=== PATIENT | female | born 1970 | race Caucasian/White ===

== ENCOUNTER → 2019-10-27 | Outpatient (CLI) | payer OTHER ==
[2019-10-27 12:58] LABS: BASO # 0.1 x10^3/uL (0.0-0.2); BASO % 1 % (0-3); EOS # 0.9 x10^3/uL (0.0-0.7); EOS % 6 % (0-3); HEMATOCRIT 42.6 % (36.0-47.0); LYMPH # 2.6 x10^3/uL (1.0-4.8); LYMPH % 17 % (24-48); MEAN CORPUSCULAR HEMOGLOBIN 26 pg (25-35); MEAN CORPUSCULAR HGB CONC 33 g/dL (31-37); MEAN CORPUSCULAR VOLUME 80 fL (79-100); MONO # 0.9 x10^3/uL (0.0-1.1); MONO % 6 % (0-9); NEUT # 10.3 x10^3/uL (1.8-7.7); NEUT % 70 % (31-73); PLATELET COUNT 313 x10^3/uL (140-400); RED BLOOD COUNT 5.35 x10^6/uL (3.50-5.40); RED CELL DISTRIBUTION WIDTH 16.1 % (11.5-14.5); WHITE BLOOD COUNT 14.7 x10^3/uL (4.0-11.0)
== END | disposition home or self-care (01) ==
LOC: LAB 12:40
PROVIDERS: ATTEND Internal Medicine Critical Care Medicine
DX: J45.909 Unspecified asthma, uncomplicated (principal)
CPT/HCPCS: 36415; 82784; 85025

== ENCOUNTER → 2019-10-30 | Outpatient (CLI) | payer OTHER ==
--- NOTE | 2019-10-30 23:05 | RAD ---
CHEST PA LATERAL History: Shortness of breath. Productive cough. Wheezing. Comparison: None. Findings: Patchy right medial basilar opacity. No pleural effusion. No pneumothorax. Normal heart size. Impression: 1. Patchy right medial basilar opacity, may represent atelectasis. Recommend follow-up to exclude developing consolidation. Electronically signed by: Pedro Vee DO (10/30/2019 11:03 PM) [facility]
== END | disposition home or self-care (01) ==
LOC: RAD 17:38
PROVIDERS: ATTEND Internal Medicine Critical Care Medicine
DX: R06.02 Shortness of breath (principal); J45.909 Unspecified asthma, uncomplicated; R05 Cough; R06.2 Wheezing
CPT/HCPCS: 71046

== ENCOUNTER → 2019-11-10 | Outpatient (CLI) | payer OTHER ==
[~2019-11-10] MED LIST: ZOLPIDEM 5 MG TABLET. PO ONE
--- NOTE | 2019-11-11 09:53 | SLEEP ---
DATE OF STUDY: 11/10/2019 SLEEP STUDY ATTENDING PHYSICIAN: Kojo Chris MD. The patient is a 49-year-old who weighs 260 pounds with a BMI of 44. The patient's Austerlitz score was 13. The patient underwent sleep study performed at [facility]. During the night study, the patient spent 464 minutes in bed and slept for 426 minutes with a sleep efficiency of 92%. Sleep latency was 17 minutes with a REM latency of 188 minutes. Overall, sleep architecture showed increased stage 1 sleep, normal stage 2 sleep, increased slow wave and slightly reduced REM sleep. During the night study, the patient had 1 obstructive apnea, no mixed or central apneas and 76 hypopneas. The patient's apnea-hypopnea index was 11 per hour with a supine index of 13 per hour and a REM index of 55 per hour. EKG monitoring revealed an average heart rate of 95 beats per minute, no sustained arrhythmias observed. Occasional episodes of sinus tachycardia seen. Nocturnal oximetry study revealed a mean oxygen saturation of 96% with the lowest of 79%. 17% of time oxygen saturation remained between 80% and 89% and it was worse during REM sleep. PLMS were seen at index of 31 per hour and 3 per hour caused EEG arousals. Due to low AHI, the patient did not meet the split night criteria for CPAP initiation. IMPRESSION: 1. Mild sleep apnea-hypopnea syndrome with worsening during REM sleep. Total AHI 11 per hour with a REM AHI of 55 per hour. 2. Nocturnal hypoxia secondary to obstructive sleep apnea. Hypoxia was worse during REM sleep. 3. Moderate periodic limb movements. RECOMMENDATIONS: 1. The patient is clinically symptomatic. I would recommend treating the patient's sleep apnea with CPAP. Alternate treatment option would include oral appliance as recommended by the dentist. 2. Once the patient is optimally treated, then follow up in 4-6 weeks to assess compliance with treatment and to document clinical improvement. 3. Weight loss is strongly advised. 4. Avoid [employer] depressants. 5. Cautioned regarding driving until symptoms of sleep apnea have resolved with above recommendations. HEAVEN SINGLETARY MD DR: ROXIE/umm JOB#: [id number] / [id number] KOJO Pineda
== END | disposition home or self-care (01) ==
LOC: SLPLAB 19:00
PROVIDERS: ATTEND Internal Medicine Critical Care Medicine
DX: G47.33 Obstructive sleep apnea (adult) (pediatric) (principal); G47.34 Idiopathic sleep related nonobstructive alveolar hypoventilation; G47.61 Periodic limb movement disorder
CPT/HCPCS: 95810

== ENCOUNTER 2019-12-13 19:43 | Emergency (ER) | payer OTHER ==
[~2019-12-13] VITALS: Ht 162.6 cm; Wt 118.8 kg
[2019-12-13 21:07] LABS: BASO # 0.1 x10^3/uL (0.0-0.2); BASO % 1 % (0-3); EOS # 0.4 x10^3/uL (0.0-0.7); EOS % 3 % (0-3); HEMATOCRIT 42.1 % (36.0-47.0); HEMOGLOBIN 13.9 g/dL (12.0-15.5); LYMPH # 3.9 x10^3/uL (1.0-4.8); LYMPH % 27 % (24-48); MEAN CORPUSCULAR HEMOGLOBIN 27 pg (25-35); MEAN CORPUSCULAR HGB CONC 33 g/dL (31-37); MEAN CORPUSCULAR VOLUME 83 fL (79-100); MONO # 1.2 x10^3/uL (0.0-1.1); MONO % 9 % (0-9); NEUT # 8.7 x10^3/uL (1.8-7.7); NEUT % 60 % (31-73); PLATELET COUNT 298 x10^3/uL (140-400); RED CELL DISTRIBUTION WIDTH 15.1 % (11.5-14.5); WHITE BLOOD COUNT 14.4 x10^3/uL (4.0-11.0)
[2019-12-13 21:07] LABS: BILIRUBIN,URINE NEGATIVE (NEG); CLARITY,URINE CLEAR; COLOR,URINE YELLOW; NITRITE,URINE NEGATIVE (NEG); PROTEIN,URINE NEGATIVE (NEG-TRACE); UROBILINOGEN,URINE 0.2 mg/dL (0.2 mg/dL)
[2019-12-13 21:12] LABS: BACTERIA,URINE FEW /HPF (0-FEW); RBC,URINE 0 /HPF (0-2); SQUAMOUS EPITHELIAL CELL,UR MANY /LPF; WBC,URINE OCC /HPF (0-4)
[2019-12-13] MEDS ORDERED: cloNIDine HCL 0.1 MG TABLET PO ONE (21:30)
--- NOTE | 2019-12-13 21:30 | RAD ---
CHEST AP ONLY Clinical indications: Shortness of air. COMPARISON: October 30, 2019. Findings: No acute lung infiltrate or pleural effusion or pulmonary edema or lung mass or pneumothorax is seen. The heart size, pulmonary vasculature, mediastinum and both satish are unremarkable. Impression: No acute radiographic abnormality is seen. Electronically signed by: Temo Mattson MD (12/13/2019 9:27 PM) [facility]
[2019-12-13 21:47] LABS: CREATININE 0.9 mg/dL (0.6-1.0); GFR 67.1; POTASSIUM 3.7 mmol/L (3.5-5.1)
[2019-12-13 21:52] LABS: ALBUMIN 3.5 g/dL (3.4-5.0); ALBUMIN/GLOBULIN RATIO 0.9 (1.0-1.7); TOTAL BILIRUBIN 0.2 mg/dL (0.2-1.0); TOTAL PROTEIN 7.3 g/dL (6.4-8.2)
[2019-12-13] MEDS ORDERED: MORPHINE SULFATE 4 MG/ML VIAL. IV ONE (22:00)
[2019-12-13] MEDS ORDERED: ONDANSETRON PF 4 MG/2 ML VIAL. IVP ONE (22:00)
[2019-12-13 22:04] VITALS: BP 149/80
--- NOTE | 2019-12-13 22:50 | PHYS DOC ---
Past Medical History Past Medical History: Anxiety, Arthritis, Asthma, Fibromyalgia, High Cholesterol, Hypertension, Migraines, Sciatica, Other Additional Past Medical Histor: CEREBROCAVENOUS MALFORMATION Past Surgical History: Hysterectomy, Tonsillectomy, Other Additional Past Surgical Histo: SINUS,ADENOIDS Alcohol Use: None Drug Use: None Adult General Chief Complaint Chief Complaint: HYPERTENSION HPI HPI Patient is a 49 year old anxiety, asthma hypertension and fibromyalgia who presents with multiple medical complaints. Patient reports cyst and shortness of breath and wheezing for the past several days. Started on prednisone 60 mg twice daily 3 days ago with some improvement. Denies fever. Reports pain, bilateral shoulder pain 2 weeks reproducible with range of motion and palpation. Reports headache with dizziness last evening with elevated blood pressure prior to work this evening. Denies fever, nausea vomiting sweats. No other acute symptoms or complaints No missed medications. [] Review of Systems Review of Systems ROS as per HPI All other systems were reviewed and found to be within normal limits, except as documented in this note. Current Medications Current Medications Current Medications Medications (Trade) Dose Ordered Sig/Bernard Start Time Stop Time Status Last Admin Dose Admin Clonidine HCl (Catapres) 0.2 mg 1X ONCE 12/13/19 21:30 12/13/19 21:31 DC 12/13/19 21:30 0.2 MG Lorazepam (Ativan Inj) 1 mg PRN Q4HRS PRN 12/13/19 21:30 12/13/19 22:31 DC 12/13/19 21:31 1 MG Morphine Sulfate (Morphine Sulfate) 4 mg 1X ONCE 12/13/19 22:00 12/13/19 22:01 DC 12/13/19 21:31 4 MG Ondansetron HCl (Zofran) 4 mg 1X ONCE 12/13/19 22:00 12/13/19 22:01 DC 12/13/19 21:31 4 MG Allergies Allergies Allergies Coded Allergies Type Severity Reaction Last Updated Verified Iodinated Contrast Media Allergy Severe CAN'T SWALLOW 12/13/19 Yes shellfish derived Allergy Severe 12/13/19 Yes adhesive Allergy Intermediate 12/13/19 Yes codeine Allergy Intermediate 12/13/19 Yes ketorolac Allergy Intermediate 12/13/19 Yes latex Allergy Intermediate 12/13/19 Yes influenza virus vaccine ts 5033-1294 (36 mos,up) Adverse Reaction Intermediate ARM SWELLING, HIVES 12/13/19 Yes Physical Exam Physical Exam Constitutional: Well developed, well nourished, no acute distress, non-toxic appearance. [] HENT: Normocephalic, atraumatic, bilateral external ears normal, oropharynx moist, no oral exudates, nose normal. [] Eyes: PERRLA, EOMI, conjunctiva normal, no discharge. [] Neck: Normal range of motion, no tenderness, supple, no stridor. [] Cardiovascular:Heart rate regular rhythm, no murmur, negative Homans signs [] Lungs & Thorax: Respirations nonlabored, tachypnea, mildly diminished breath s ounds bilaterally, no wheezes.[] Abdomen: Bowel sounds normal, soft, no tenderness. [] Skin: Warm, dry, no erythema, no rash. [] Back: No tenderness, no CVA tenderness. [] Extremities: No tenderness. [] Neurologic: Alert and oriented X 3, normal motor function, normal sensory function, no focal deficits noted. [] Psychologic: Affect anxious, judgement normal, mood normal. [] Current Patient Data Vital Signs Vital Signs Date Time Temp Pulse Resp B/P (MAP) Pulse Ox O2 Delivery O2 Flow Rate FiO2 12/13/19 22:04 98 16 98 12/13/19 21:31 Room Air 12/13/19 21:30 179/78 12/13/19 19:57 98.1 98.1 Lab Values Laboratory Tests Test 12/13/19 20:03 12/13/19 20:18 12/13/19 20:48 Urine Collection Type Unknown Urine Color Yellow Urine Clarity Clear Urine pH 6.0 Urine Specific [place] 1.020 Urine Protein Negative mg/dL (NEG-TRACE) Urine Glucose (UA) Negative mg/dL (NEG) Urine Ketones (Stick) Negative mg/dL (NEG) Urine Blood Negative (NEG) Urine Nitrite Negative (NEG) Urine Bilirubin Negative (NEG) Urine Urobilinogen Dipstick 0.2 mg/dL (0.2 mg/dL) Urine Leukocyte Esterase Negative (NEG) Urine RBC 0 /HPF (0-2) Urine WBC Occ /HPF (0-4) Urine Squamous Epithelial Cells Many /LPF Urine Bacteria Few /HPF (0-FEW) Urine Mucus Slight /LPF Sodium Level 144 mmol/L (136-145) Potassium Level 3.7 mmol/L (3.5-5.1) Chloride Level 106 mmol/L (98-107) Carbon Dioxide Level 28 mmol/L (21-32) Anion Gap 10 (6-14) Blood Urea Nitrogen 17 mg/dL (7-20) Creatinine 0.9 mg/dL (0.6-1.0) Estimated GFR (Cockcroft-Gault) 67.1 BUN/Creatinine Ratio 19 (6-20) Glucose Level 91 mg/dL (70-99) Calcium Level 9.0 mg/dL (8.5-10.1) Total Bilirubin 0.2 mg/dL (0.2-1.0) Aspartate Amino Transferase (AST) 13 U/L (15-37) L Alanine Aminotransferase (ALT) 16 U/L (14-59) Alkaline Phosphatase 107 U/L (46-116) Total Protein 7.3 g/dL (6.4-8.2) Albumin 3.5 g/dL (3.4-5.0) Albumin/Globulin Ratio 0.9 (1.0-1.7) L White Blood Count 14.4 x10^3/uL (4.0-11.0) H Red Blood Count 5.10 x10^6/uL (3.50-5.40) Hemoglobin 13.9 g/dL (12.0-15.5) Hematocrit 42.1 % (36.0-47.0) Mean Corpuscular Volume 83 fL (79-100) Mean Corpuscular Hemoglobin 27 pg (25-35) Mean Corpuscular Hemoglobin Concent 33 g/dL (31-37) Red Cell Distribution Width 15.1 % (11.5-14.5) H Platelet Count 298 x10^3/uL (140-400) Neutrophils (%) (Auto) 60 % (31-73) Lymphocytes (%) (Auto) 27 % (24-48) Monocytes (%) (Auto) 9 % (0-9) Eosinophils (%) (Auto) 3 % (0-3) Basophils (%) (Auto) 1 % (0-3) Neutrophils # (Auto) 8.7 x10^3/uL (1.8-7.7) H Lymphocytes # (Auto) 3.9 x10^3/uL (1.0-4.8) Monocytes # (Auto) 1.2 x10^3/uL (0.0-1.1) H Eosinophils # (Auto) 0.4 x10^3/uL (0.0-0.7) Basophils # (Auto) 0.1 x10^3/uL (0.0-0.2) Troponin I Quantitative < 0.017 ng/mL (0.000-0.055) KQ-Znp-N-Type Natriuretic Peptide 39 pg/mL (0-124) Laboratory Tests 12/13/19 20:48 Laboratory Tests 12/13/19 20:18 EKG EKG [EKG: reviewed] Radiology/Procedures Radiology/Procedures [CXR: AND per radiology report] Course & Med Decision Making Course & Med Decision Making Pertinent Labs and Imaging studies reviewed. (See chart for details) [Ativan, morphine givenf or tx on anxiety Patient much more relaxed respiratory rate low 20s O2 sats and 90s. Lungs sounds remain clear. Patient with chronic asthma exacerbation currently on Pulmicort,, Spiriva and steroids. Admission offered patient but declined. Will have follow-up with ict support technicians and PCP.] Dragon Disclaimer Dragon Disclaimer This electronic medical record was generated, in whole or in part, using a voice recognition dictation system. Departure Departure Impression: Primary Impression: Shoulder pain, bilateral Additional Impressions: Asthma exacerbation Anxiety state Neck pain Disposition: 01 HOME, SELF-CARE Condition: GOOD Patient Instructions: Anxiety and Panic Attacks, [id number], Musculoskeletal Pain, Asthma, Adult, [id number] Additional Instructions: Please continue current medications follow-up with your PCP and ict support technicians for further management of asthma and blood pressure. Return to the ED if new or concerning symptoms. Problem Qualifiers TIFFANIE ARIAS DO Dec 13, 2019 22:50
--- NOTE | 2019-12-14 06:49 | EKG ---
[facility] [address] [place] [address] Test Date: 2019-12-13 Test Time: 20:15:23 Pat Name: NANCY DIAMOND Department: Room: Gender: F Sports Anchor: : 1970 Requested By: TIFFANIE ARIAS Order Number: [id number] Reading MD: Measurements Intervals [place] Rate: 73 P: 0 WA: 162 QRS: 43 QRSD: 78 T: 24 QT: 346 QTc: 384 Interpretive Statements SINUS RHYTHM NORMAL ECG No previous ECG available for comparison
== END 2019-12-13 22:18 | disposition home or self-care (01) ==
LOC: ER 19:43
DX: J45.901 Unspecified asthma with (acute) exacerbation (principal); M25.511 Pain in right shoulder; M25.512 Pain in left shoulder; F41.9 Anxiety disorder, unspecified; M54.2 Cervicalgia; R42 Dizziness and giddiness; E78.00 Pure hypercholesterolemia, unspecified; I10 Essential (primary) hypertension; G43.909 Migraine, unspecified, not intractable, without status migrainosus; Z90.710 Acquired absence of both cervix and uterus; Z91.041 Radiographic dye allergy status; Z88.5 Allergy status to narcotic agent; Z91.040 Latex allergy status; Z91.013 Allergy to seafood; Z88.7 Allergy status to serum and vaccine; Z88.6 Allergy status to analgesic agent; Z88.8 Allergy status to other drugs, medicaments and biological substances
CPT/HCPCS: 36415; 71045; 80053; 81001; 83880; 84484; 85025; 93005; 96374; 96375; 99285; J2060; J2270; J2405

== ENCOUNTER → 2020-02-05 | Outpatient (CLI) | payer OTHER ==
[~2020-02-05] MED LIST changes: +BARIUM SULFATE 60% 355 ML SUSP PO ONE; +BARIUM SULFATE 96% 397 GM ENEMA. PR ONE; -ZOLPIDEM 5 MG TABLET. PO ONE
--- NOTE | 2020-02-05 17:07 | RAD ---
Examination: Cervical and thoracic esophagram. INDICATION: 49-year-old woman complaining of long history of sensation of food getting stuck in her throat with intermittent episodes of regurgitation. She also reports a long history of sensations of gastroesophageal reflux with multiple previous upper and lower endoscopic evaluations in her teenage years for gastrointestinal problems. COMPARISON: Chest x-ray of 12/13/2019 TECHNIQUE: Rapid sequence imaging of the cervical esophagus in the lateral and frontal projections was performed in addition to supine fluoroscopic imaging of the thoracic esophagus with and without provocative maneuvers for reflux during ingestion of thick and thin barium. A total of 1.7 minutes of fluoroscopy time was utilized 14 images were acquired for procedural documentation. FINDINGS: No strictures or diverticuli were identified in the cervical or thoracic esophagus. No hiatal hernia was observed and no gastroesophageal reflux was provoked on this examination. Mucosal consistency was unremarkable. No retained ingested material was observed on this study. There were a few nonpropulsive contractions that the barium contrast column with slight retrograde propulsion in the upper half of the bolus. IMPRESSION: Negative barium swallow study for any evidence of diverticuli or strictures however a few nonpropulsive contractions were observed resulting in mild retrograde propulsion of upper ingested contrast. If clinically warranted, a video swallow study could be performed to assess swallowing during ingestion of varying food consistencies to better assess if her symptoms can be reproduced and the imaging correlate observed in real-time. Electronically signed by: Adam Conner MD (02/05/2020 5:04 PM) [id number]
== END | disposition home or self-care (01) ==
LOC: RAD 09:07
PROVIDERS: ATTEND Internal Medicine Critical Care Medicine
DX: Z87.19 Personal history of other diseases of the digestive system (principal)
CPT/HCPCS: 74220

== ENCOUNTER → 2020-11-09 | Outpatient (CLI) | payer OTHER ==
--- NOTE | 2020-11-11 20:01 | RAD ---
Examination: MG BILAT SCREEN+RACHELLE History: Reason: SCREENING MAMMOGRAM 3D / Spl. Instructions: / History: Comparison/Correlation: 12/01/2019 Technique: MLO and CC digital tomosynthesis (3D) images obtained. Radiologist reviewed these images on dedicated workstation. Findings: Breast Tissue Density D :The breasts are extremely dense, which lowers the sensitivity of mammography . Small asymmetry involves the posterior aspect of the right upper breast 8.2 cm from the nipple. Biops y clip marker involves anterior right breast. There is asymmetry and suggestion of distortion involving the left upper central breast 8.6 cm from t he nipple. It is seen on CC tomographic images.. Multiple calcific lesions bilaterally are present s imilar to previous exam. IMPRESSION: Spot compression bilaterally is recommended. Ultrasound bilaterally may be needed. BI-RADS Category 0: Incomplete: Need additional imaging evaluation. The images were reviewed with computer-aided detection. Patient information is entered into reminder system with a target due date for the next screening arnoldo mogram. Mammography is the most sensitive method for finding small breast cancers, but it does not detect the m all and is not a substitute for careful clinical examination. A negative mammogram does not negate a clinically suspicious finding and should not result in delay in biopsying a clinically suspicious a bnormality. "Our facility is accredited by the [employer] Mammography Program." Electronically signed by: Hebert Paez MD (11/11/2020 7:59 PM) [facility]
== END ==
LOC: MAMMO 14:45
PROVIDERS: ATTEND Nurse Practitioner Family
DX: Z12.31 Encounter for screening mammogram for malignant neoplasm of breast (principal)
CPT/HCPCS: 77063; 77067

== ENCOUNTER → 2020-12-01 | Outpatient (CLI) | payer OTHER ==
--- NOTE | 2020-12-01 10:41 | RAD ---
EXAM: Bilateral digital diagnostic mammogram; bilateral breast sonogram. HISTORY: 50-year-old female presents for reduction of asymmetries within both breasts demonstrated on a screening mammogram dated 11/09/2020. TECHNIQUE: Full-field digital true lateral and exaggerated craniocaudal images of both breasts are ob tained for evaluation. Sonographic imaging of both breasts including all 4 quadrants and the retroare olar regions was performed. COMPARISON: 12/01/2019, 03/17/2018, 03/05/2018, 03/04/2017 BREAST PARENCHYMAL DENSITY: Level D - Extremely dense. FINDINGS: There are multiple areas of asymmetry and nodularity within both breasts which are similar compared to the study performed 12/01/2019, allowing for differences in imaging technique. There is sug gestion of distortion within both breasts which is not persist between projections. There are multipl e benign calcifications. There is a biopsy clip within the 8:00 position of the right breast. Sonographic imaging of the right breast demonstrates multiple cystic and benign fibrous cystic lesion s scattered throughout the breast. For reference purposes, the largest lesion is a simple cyst at the 2:00 position 2 cm from the nipple measuring 2.6 cm. There is adjacent 4 mm hypoechoic lesion with i nternal echoes which is likely a cyst with internal debris or benign fibrocystic or fibroadenomatoid lesion. There is a similar-appearing complicated cystic, fibrocystic or fibroadenomatoid lesion measu ring 5 mm at the 3:00 position 6 cm from the nipple. This contains a calcification. There is a groupi ng of cysts and benign fibrocystic lesions measuring up to 1.4 cm at the 12:00 position 4 cm from the nipple. There is a 9 mm cyst at the 1:00 position 4 cm from the nipple. There is a stable lymph node with benign fatty hilum measuring 6 mm at the 10:00 position 3 cm from the nipple. There is a 10 mm cluster of cysts or benign fibrocystic lesion at the 11:00 position 3 cm from the nipple. There are s everal cysts measuring up to 7 mm at the retroareolar location. There are fibrocystic changes elsewhe re throughout the right breast. Sonographic imaging of the left breast demonstrates a 7 mm cyst within the 12:00 retroareolar locatio n. There is a 6 mm complicated cyst or benign fibrocystic lesion with internal echoes at the 1:00 pos ition 1 cm from the nipple. There is a more simple appearing cyst measuring 7 mm at the 2:00 position 4 cm for the nipple. There is a 4 mm benign fibrous cystic lesion containing calcification at the 3: 00 position 2 cm from the nipple. There is a 7 mm simple appearing cyst at the 9:00 position 1 cm fro m the nipple. There is a 6 mm simple cyst at the 10:00 position. There is a 4 mm corticated cyst at t he 11:00 position. There are dilated ducts within the retroareolar breast. IMPRESSION: 1. Multiple benign-appearing simple uncomplicated cystic, fibrocystic and possible fibroadenomatoid l esions within the breasts, described in detail above. These account for areas of asymmetry and nodula rity demonstrated mammographically. No convincing suspicious lesion is seen with additional combined mammographic and sonographic images. However, given the number of lesions and extremely dense breast pattern,, short-term follow-up in 6 months is recommended to confirm stability. 2. BI-RADS Category 3: Probably benign finding(s). Precautionary short-term follow up with a [employer] ic bilateral breast mammogram and sonogram in 6 months is recommended. If your mammogram demonstrates that you have dense breast tissue, which could hide abnormalities, and if you have other risk factors for breast cancer that have been identified, you might benefit from s upplemental screening tests that may be suggested by your ordering physician. Dense breast tissue, i n and of itself, is a relatively common condition. This information is not provided to cause undue c oncern, but rather to raise your awareness and to promote discussion with your physician regarding th e presence of other risk factors, in addition to dense breast tissue. A report of your mammography re sults will be sent to you and your physician. You should contact your physician if you have any ques tions or concerns regarding this report. Mammography is a sensitive method for finding small breast cancers, but it does not detect them all a nd is not a substitute for careful clinical examination. A negative mammogram does not negate a clin ically suspicious finding and should not result in delay in biopsying a clinically suspicious abnorma lity. PQRS compliance statement - Patient information was entered into a reminder system with a target due date for the next mammogram. "Our facility is accredited by the [employer] Mammography Program." Electronically signed by: Cori Williamson MD (12/01/2020 10:39 AM) [id number]
== END ==
LOC: MAMMO 08:49
PROVIDERS: ATTEND Nurse Practitioner Family
DX: N60.01 Solitary cyst of right breast (principal); N60.02 Solitary cyst of left breast
CPT/HCPCS: 77066; 76641-50

== ENCOUNTER → 2021-05-04 | Outpatient (CLI) | payer OTHER ==
[2021-05-04 17:04] LABS: ALBUMIN 3.6 g/dL (3.4-5.0); ALBUMIN/GLOBULIN RATIO 0.9 (1.0-1.7); CALCIUM 8.8 mg/dL (8.5-10.1); CREATININE 0.9 mg/dL (0.6-1.0); GFR 66.8; POTASSIUM 4.4 mmol/L (3.5-5.1); TOTAL BILIRUBIN 0.2 mg/dL (0.2-1.0); TOTAL PROTEIN 7.7 g/dL (6.4-8.2)
[2021-05-04 17:12] LABS: BASO # 0.1 x10^3/uL (0.0-0.2); BASO % 1 % (0-3); EOS # 0.8 x10^3/uL (0.0-0.7); EOS % 5 % (0-3); HEMATOCRIT 43.2 % (36.0-47.0); HEMOGLOBIN 14.3 g/dL (12.0-15.5); LYMPH # 2.7 x10^3/uL (1.0-4.8); LYMPH % 17 % (24-48); MEAN CORPUSCULAR HEMOGLOBIN 28 pg (25-35); MEAN CORPUSCULAR HGB CONC 33 g/dL (31-37); MEAN CORPUSCULAR VOLUME 83 fL (79-100); MONO # 1.2 x10^3/uL (0.0-1.1); MONO % 8 % (0-9); NEUT # 10.8 x10^3/uL (1.8-7.7); NEUT % 69 % (31-73); PLATELET COUNT 283 x10^3/uL (140-400); RED BLOOD COUNT 5.18 x10^6/uL (3.50-5.40); RED CELL DISTRIBUTION WIDTH 15.6 % (11.5-14.5); WHITE BLOOD COUNT 15.5 x10^3/uL (4.0-11.0)
[2021-05-04 17:15] LABS: FREE T4 0.9 ng/dL (0.76-1.46); THYROID STIM HORMONE (TSH) 2.879 uIU/mL (0.358-3.74)
[2021-05-04 17:20] LABS: CHOLESTEROL/HDL RATIO 2.7
== END ==
LOC: LAB 16:23
PROVIDERS: ATTEND Physician Assistant Medical
DX: M79.7 Fibromyalgia (principal); R53.83 Other fatigue; Z86.2 Personal history of diseases of the blood and blood-forming organs and certain disorders involving the immune mechanism
CPT/HCPCS: 36415; 80053; 80061; 84439; 84443; 85025

== ENCOUNTER 2021-05-20 21:04 | Emergency (ER) | payer OTHER ==
[~2021-05-20] VITALS: Ht 165.1 cm; Wt 103.6 kg
[2021-05-20 21:36] LABS: BASO # 0.2 x10^3/uL (0.0-0.2); BASO % 1 % (0-3); EOS # 0.7 x10^3/uL (0.0-0.7); EOS % 6 % (0-3); HEMOGLOBIN 14.2 g/dL (12.0-15.5); LYMPH # 3.1 x10^3/uL (1.0-4.8); LYMPH % 26 % (24-48); MEAN CORPUSCULAR HEMOGLOBIN 28 pg (25-35); MEAN CORPUSCULAR HGB CONC 33 g/dL (31-37); MEAN CORPUSCULAR VOLUME 83 fL (79-100); MONO # 1.1 x10^3/uL (0.0-1.1); MONO % 9 % (0-9); NEUT # 6.8 x10^3/uL (1.8-7.7); NEUT % 58 % (31-73); PLATELET COUNT 246 x10^3/uL (140-400); RED BLOOD COUNT 5.16 x10^6/uL (3.50-5.40); RED CELL DISTRIBUTION WIDTH 15.1 % (11.5-14.5); WHITE BLOOD COUNT 11.8 x10^3/uL (4.0-11.0)
[2021-05-20 21:44] LABS: CALCIUM 8.6 mg/dL (8.5-10.1); GFR 59.2; POTASSIUM 3.8 mmol/L (3.5-5.1)
[2021-05-20] MEDS ORDERED: ONDANSETRON PF 4 MG/2 ML VIAL. IV ONE (21:45)
[2021-05-20] MEDS ORDERED: fentaNYL PF VIAL 100 MCG/2 ML VIAL IV ONE (21:45)
[2021-05-20] MEDS ORDERED: diphenhydrAMINE 50 MG/ML VIAL IVP ONE (21:45)
[2021-05-20] MEDS ORDERED: IV NORMAL SALINE 1000ML BAG 1,000 ML IV ONE (21:45)
[2021-05-20] MEDS ORDERED: methylPREDNISolone SOD SUCC PF 125 MG/2 ML VIAL. IV ONE (21:45)
[2021-05-20 21:50] LABS: ALBUMIN 3.5 g/dL (3.4-5.0); ALBUMIN/GLOBULIN RATIO 0.9 (1.0-1.7); TOTAL BILIRUBIN 0.4 mg/dL (0.2-1.0); TOTAL PROTEIN 7.5 g/dL (6.4-8.2)
[2021-05-20 23:09] LABS: BILIRUBIN,URINE NEGATIVE (NEG); CLARITY,URINE CLEAR; COLOR,URINE YELLOW; NITRITE,URINE NEGATIVE (NEG); PH,URINE 5.5 (<5.0-8.0); PROTEIN,URINE NEGATIVE (NEG-TRACE); UROBILINOGEN,URINE 0.2 mg/dL (0.2 mg/dL)
--- NOTE | 2021-05-20 23:12 | RAD ---
CT ABDOMEN+PELVIS WO INDICATION: RLQ pain EXAM: Noncontrast CT of the abdomen and pelvis. Coronal and sagittal reformatted images were perform ed. PQRS compliance statement: One or more of the following individualized dose reduction techniques were utilized for this examinat ion: 1. Automated exposure control 2. Adjustment of the mA and/or kV according to patient size 3. Use of iterative reconstruction technique COMPARISON: None FINDINGS: No free air, free fluid, or fluid collection. Lower chest: The visualized lower lungs are aerated. No pleural or pericardial effusion. ABDOMEN: Liver: The noncontrast liver is homogeneous in attenuation. Gallbladder and biliary: Normal gallbladder without radiopaque stone. Normal caliber bile ducts. Spleen: Normal spleen. Pancreas: The noncontrast pancreas is homogeneous in attenuation without peripancreatic inflammatory changes. Adrenal glands: Normal adrenal glands. Kidneys and ureters: Punctate nonobstructive left renal calculus. No hydronephrosis GI tract: The stomach is decompressed and poorly evaluated. Normal caliber small bowel and colon. Nor mal appendix. Vascular structures: Normal caliber abdominal aorta. Lymph nodes: No lymphadenopathy in the abdomen or pelvis. PELVIS: Genitourinary system: Normal bladder. Hysterectomy. SKELETAL STRUCTURES AND SOFT TISSUES: No fracture or destructive lesion in the visualized skeleton. IMPRESSION: 1. Punctate nonobstructive left renal calculus. No hydronephrosis. 2. Normal caliber bowel. Normal appendix. Electronically signed by: Delano Vela MD (05/20/2021 11:09 PM) [facility]le
[2021-05-20 23:16] LABS: BACTERIA,URINE 0 /HPF (0-FEW); RBC,URINE OCC /HPF (0-2)
[2021-05-20] MEDS ORDERED: HYDR-2761 PO (23:29)
--- NOTE | 2021-05-20 23:29 | ED.ADGEN ---
Past Medical History Past Medical History: Anxiety, Arthritis, Asthma, Fibromyalgia, GERD, High Cholesterol, Hypertension, Migraines, Sciatica, Other Additional Past Medical Histor: CEREBROCAVENOUS MALFORMATION,IBS Past Surgical History: Hysterectomy, Tonsillectomy, Other Additional Past Surgical Histo: SINUS,ADENOIDS Smoking Status: Never Smoker Alcohol Use: None Drug Use: None General Adult EDM: Chief Complaint: ABDOMINAL PAIN HPI: HPI: Patient is a 50 year old female who presents to the emergency department with complaints of a sudden onset of right lower quadrant abdominal pain that began tonight while she was working. Patient denies any nausea, vomiting, diarrhea, shortness of breath, cough, fever, back pain, dysuria, hematuria, or increased urinary frequency. Reports that she also has some pain in her right shoulder. She states that the pain is her weight on her right leg. Patient reports that the pain increases with palpation and also movement of her right leg. She denies any recent injuries or falls. She currently rates the pain a 10 out of 10 on the pain scale, she denies any alleviating factors the pain is worse with movement and palpation. Patient reports that prior history of a partial hysterectomy she denies any concerns of . Review of Systems: Review of Systems: Complete ROS is negative unless otherwise noted in HPI. Current Medications: Current Medications Medications (Trade) Dose Ordered Sig/[facility] Start Time Stop Time Status Last Admin Dose Admin Diphenhydramine HCl (Benadryl) 25 mg 1X ONCE 05/20/21 21:45 05/20/21 22:08 DC Fentanyl Citrate (Fentanyl 2ml Vial) 50 mcg 1X ONCE 05/20/21 21:45 05/20/21 21:46 DC 05/20/21 22:07 50 MCG Methylprednisolone Sodium Succinate (SOLU-Medrol 125MG VIAL) 125 mg 1X ONCE 05/20/21 21:45 05/20/21 22:08 DC Ondansetron HCl (Zofran) 4 mg 1X ONCE 05/20/21 21:45 05/20/21 21:46 DC 05/20/21 22:19 4 MG Sodium Chloride 1,000 ml @ 1,000 mls/hr 1X ONCE 05/20/21 21:45 05/20/21 22:44 DC 05/20/21 22:06 1,000 MLS/HR Allergies: Allergies: Allergies Coded Allergies Type Severity Reaction Last Updated Verified Iodinated Contrast Media Allergy Severe CAN'T SWALLOW 12/13/19 Yes shellfish derived Allergy Severe 12/13/19 Yes adhesive Allergy Intermediate 12/13/19 Yes codeine Allergy Intermediate 12/13/19 Yes ketorolac Allergy Intermediate 12/13/19 Yes latex Allergy Intermediate 12/13/19 Yes influenza virus vaccine [id number] (36 mos,up) Adverse Reaction Intermediate ARM SWELLING, HIVES 12/13/19 Yes Physical Exam: PE: See Above Constitutional: Well developed, well nourished, no acute distress, non-toxic appearance, appears uncomfortable,. [] HENT: Normocephalic, atraumatic, bilateral external ears normal, nose normal. [] Eyes: PERRLA, EOMI, conjunctiva normal, no discharge. [] Neck: Normal range of motion, no stridor. [] Cardiovascular:Heart rate regular rhythm, no murmur Lungs & Thorax: Respirations even and unlabored, no retractions, no respiratory distress, lungs CTA Abdomen: soft, right lower quadrant tenderness to palpation, no rebound tenderness, no guarding, positive Rovsing sign, positive McBurney's point tenderness, positive obturator sign, bowel sounds active in all quads Skin: Warm, dry, no erythema, no rash. [] Extremities: No cyanosis, ROM intact, no edema. [] Neurologic: Alert and oriented X 3, normal motor, normal sensory, no focal deficits noted. [] Psychologic: Affect anxious, judgement normal, mood normal. [] Current Patient Data: Labs: Laboratory Tests Test 05/20/21 21:26 05/20/21 23:00 White Blood Count 11.8 x10^3/uL (4.0-11.0) H Red Blood Count 5.16 x10^6/uL (3.50-5.40) Hemoglobin 14.2 g/dL (12.0-15.5) Hematocrit 43.0 % (36.0-47.0) Mean Corpuscular Volume 83 fL (79-100) Mean Corpuscular Hemoglobin 28 pg (25-35) Mean Corpuscular Hemoglobin Concent 33 g/dL (31-37) Red Cell Distribution Width 15.1 % (11.5-14.5) H Platelet Count 246 x10^3/uL (140-400) Neutrophils (%) (Auto) 58 % (31-73) Lymphocytes (%) (Auto) 26 % (24-48) Monocytes (%) (Auto) 9 % (0-9) Eosinophils (%) (Auto) 6 % (0-3) H Basophils (%) (Auto) 1 % (0-3) Neutrophils # (Auto) 6.8 x10^3/uL (1.8-7.7) Lymphocytes # (Auto) 3.1 x10^3/uL (1.0-4.8) Monocytes # (Auto) 1.1 x10^3/uL (0.0-1.1) Eosinophils # (Auto) 0.7 x10^3/uL (0.0-0.7) Basophils # (Auto) 0.2 x10^3/uL (0.0-0.2) Sodium Level 140 mmol/L (136-145) Potassium Level 3.8 mmol/L (3.5-5.1) Chloride Level 106 mmol/L (98-107) Carbon Dioxide Level 26 mmol/L (21-32) Anion Gap 8 (6-14) Blood Urea Nitrogen 11 mg/dL (7-20) Creatinine 1.0 mg/dL (0.6-1.0) Estimated GFR (Cockcroft-Gault) 59.2 BUN/Creatinine Ratio 11 (6-20) Glucose Level 121 mg/dL (70-99) H Calcium Level 8.6 mg/dL (8.5-10.1) Magnesium Level 2.0 mg/dL (1.8-2.4) Total Bilirubin 0.4 mg/dL (0.2-1.0) Aspartate Amino Transferase (AST) 19 U/L (15-37) Alanine Aminotransferase (ALT) 20 U/L (14-59) Alkaline Phosphatase 90 U/L (46-116) Total Protein 7.5 g/dL (6.4-8.2) Albumin 3.5 g/dL (3.4-5.0) Albumin/Globulin Ratio 0.9 (1.0-1.7) L Urine Collection Type Unknown Urine Color Yellow Urine Clarity Clear Urine pH 5.5 (<5.0-8.0) Urine Specific [place] 1.015 (1.000-1.030) Urine Protein Negative mg/dL (NEG-TRACE) Urine Glucose (UA) Negative mg/dL (NEG) Urine Ketones (Stick) Negative mg/dL (NEG) Urine Blood Negative (NEG) Urine Nitrite Negative (NEG) Urine Bilirubin Negative (NEG) Urine Urobilinogen Dipstick 0.2 mg/dL (0.2 mg/dL) Urine Leukocyte Esterase Trace (NEG) Urine RBC Occ /HPF (0-2) Urine WBC 1-4 /HPF (0-4) Urine Squamous Epithelial Cells Mod /LPF Urine Bacteria 0 /HPF (0-FEW) Urine Mucus Mod /LPF Laboratory Tests 05/20/21 21:26 Laboratory Tests 05/20/21 21:26 Vital Signs: Vital Signs Date Time Temp Pulse Resp B/P (MAP) Pulse Ox O2 Delivery O2 Flow Rate FiO2 05/20/21 22:07 97 Room Air 05/20/21 21:10 98.1 77 20 144/87 (106) 98.1 EKG: EKG: [] Heart Score: C/O Chest Pain: No Risk Scores: Score 0 - 3: 2.5% MACE over next 6 weeks - Discharge Home Score 4 - 6: 20.3% MACE over next 6 weeks - Admit for Clinical Observation Score 7 - 10: 72.7% MACE over next 6 weeks - Early Invasive Strategies Radiology/Procedures: Radiology/Procedures: PROCEDURE: CT ABDOMEN PELVIS WO CONTRAST CT ABDOMEN+PELVIS WO INDICATION: RLQ pain EXAM: Noncontrast CT of the abdomen and pelvis. Coronal and sagittal reformatted images were performed. PQRS compliance statement: One or more of the following individualized dose reduction techniques were utilized for this examination: 1. Automated exposure control 2. Adjustment of the mA and/or kV according to patient size 3. Use of iterative reconstruction technique COMPARISON: None FINDINGS: No free air, free fluid, or fluid collection. Lower chest: The visualized lower lungs are aerated. No pleural or pericardial effusion. ABDOMEN: Liver: The noncontrast liver is homogeneous in attenuation. Gallbladder and biliary: Normal gallbladder without radiopaque stone. Normal caliber bile ducts. Spleen: Normal spleen. Pancreas: The noncontrast pancreas is homogeneous in attenuation without peripancreatic inflammatory changes. Adrenal glands: Normal adrenal glands. Kidneys and ureters: Punctate nonobstructive left renal calculus. No hydronephrosis GI tract: The stomach is decompressed and poorly evaluated. Normal caliber small bowel and colon. Normal appendix. Vascular structures: Normal caliber abdominal aorta. Lymph nodes: No lymphadenopathy in the abdomen or pelvis. PELVIS: Genitourinary system: Normal bladder. Hysterectomy. SKELETAL STRUCTURES AND SOFT TISSUES: No fracture or destructive lesion in the visualized skeleton. IMPRESSION: 1. Punctate nonobstructive left renal calculus. No hydronephrosis. 2. Normal caliber bowel. Normal appendix. Electronically signed by: Delano Vela MD (05/20/2021 11:09 PM) [facility][] Course & Med Decision Making: Course & Med Decision Making Pertinent Labs and Imaging studies reviewed. (See chart for details) 50-year-old female presented to the emergency department with complaints of sudden onset of right lower quadrant abdominal pain. Work-up included labs, imaging, and medications. CBC revealed a white blood cell count of 11.8 otherwise unremarkable; CMP revealed a glucose of 121 otherwise unremarkable, UA revealed 1-4 white blood cells, no nitrites, no bacteria. Patient was given 1 L of normal saline, 50 mcg of fentanyl, and 4 mg Zofran. She reported that her pain improved to 4 out of [address] of the patient's abdomen pelvis revealed a punctuate nonobstructive left renal calculus without hydronephrosis. Patient reported previous history of this finding. Bowel caliber was normal, the appendix was also normal in appearance. Patient's vital signs were stable. Prescription written for hydrocodone to take as needed for pain. Recommended follow-up with primary care doctor in 1 to 2 days for repeat evaluation, return to the ER if symptoms worsen or fever develop. Patient verbalized an understanding of home care, medications, follow-up, and return to ED instructions and was in agreement with the plan of care. Dragon Disclaimer: Dragon Disclaimer: This electronic medical record was generated, in whole or in part, using a voice recognition dictation system. Departure Departure Impression: Primary Impression: RLQ abdominal pain Disposition: HOME / SELF CARE / HOMELESS Condition: STABLE Referrals: MARCO SU MD (PCP) Patient Instructions: Abdominal Pain (Nonspecific) Additional Instructions: Fill the prescription and use it as directed. Follow-up with your primary care doctor next week for further evaluation, return to the ER if symptoms worsen or fever develops. Scripts Hydrocodone Bit/Acetaminophen (HYDROCODONE-APAP 5-325 ) 1 Tab Tablet 0.5-1 TAB PO PRN Q6HRS PRN for SEVERE PAIN 7-10 for 2 Days, #8 TAB 0 Refills Prov: TRAVIS WARE APRN 05/20/21 TRAVIS WARE APRN May 20, 2021 23:29
[2021-05-21 01:30] VITALS: BP 137/74
== END 2021-05-21 01:43 | disposition home or self-care (01) ==
LOC: ER 21:04
DX: R10.31 Right lower quadrant pain (principal); J45.909 Unspecified asthma, uncomplicated; K21.9 Gastro-esophageal reflux disease without esophagitis; E80.0 Hereditary erythropoietic porphyria; I10 Essential (primary) hypertension; G43.909 Migraine, unspecified, not intractable, without status migrainosus; K58.9 Irritable bowel syndrome, unspecified; Z91.041 Radiographic dye allergy status; Z88.5 Allergy status to narcotic agent; Z88.6 Allergy status to analgesic agent; Z91.040 Latex allergy status; Z88.7 Allergy status to serum and vaccine; Z88.8 Allergy status to other drugs, medicaments and biological substances
CPT/HCPCS: 36415; 74176; 80053; 81001; 83735; 85025; 87077; 87086; 96361; 96374; 96375; 99285; J2405; J3010; J7030

== ENCOUNTER → 2021-05-25 | Outpatient (CLI) | payer OTHER ==
[2021-05-21 01:30] VITALS: BP 137/74
[~2021-05-25] MED LIST changes: -BARIUM SULFATE 60% 355 ML SUSP PO ONE; -BARIUM SULFATE 96% 397 GM ENEMA. PR ONE; +HYDR-2761 PO
--- NOTE | 2021-05-25 11:54 | RAD ---
EXAM: Bilateral digital diagnostic mammogram with tomosynthesis; bilateral breast sonogram. HISTORY: 50-year-old female presents for follow-up evaluation of mammographic and sonographic finding s demonstrated 12/01/2020. TECHNIQUE: Full-field digital craniocaudal and mediolateral oblique 2D and 3D tomosynthesis images of both breasts are obtained for evaluation. Computer aided detection was applied. Sonographic imaging of both breasts including all 4 quadrants and the retroareolar regions was performed. COMPARISON: 12/01/2020 and 11/09/2020 BREAST PARENCHYMAL DENSITY: Level D - Extremely dense. FINDINGS: There is no new suspicious mass, microcalcification or region of architectural distortion. There are extensive scattered circumscribed nodules and nodular asymmetries throughout both breasts. There are multiple scattered calcifications throughout both breasts, the morphology of which favors a benign fibrocystic etiology. Sonographic imaging of the right breast demonstrates a 3.0 cm simple cyst with adjacent 6 mm hypoecho ic lesion with internal echoes at the 2:00 position 2 cm from the nipple, the latter of which does no t demonstrate internal blood flow and is likely fibrocystic or fibroadenomatoid in etiology. This is similar compared to the prior exam. There is a 6 mm complicated cyst with internal debris at the 3:00 position 3 cm from the nipple. There is a similar-appearing 3 mm cyst at the 6:00 retroareolar locat ion. There is a 7 mm cyst with surrounding fibrocystic changes at the 9:00 position 5 cm from the nip ple. There is an 8 mm suspected cyst at the 11:00 position 3 cm from the nipple. There is an intramed ullary lymph node measuring 6 mm at the 10:00 position 3 cm from the nipple. There are dilated ducts within the retroareolar breast. No solid intraductal lesion is seen. Sonographic imaging of the left breast demonstrates a 5 mm oval hypoechoic lesion with prominent halie cent vessel within the 12:00 position, possibly due to a cyst or intramammary lymph node with thicken ed cortex. There is adjacent nonvascular lesion which is likely cystic measuring 6 mm. There is a 4 m m cyst at the 1:00 position 1 cm from the nipple. There is a 1.3 cm simple cyst at the 2:00 position 4 cm from the nipple. There are few tiny fibrocystic lesions and fibers cystic changes within the 3:0 0 position 2 cm from the nipple. There is a 5 mm cyst at the 9:00 position 1 cm from the nipple. Ther e are adjacent cysts measuring 5 mm at the 10:00 position. There is no suspicious axillary lymph node . IMPRESSION: 1. Multiple suspected benign cystic and fibrocystic and possible fibroadenomatoid lesions within both breasts, described in detail above. There are also a few suspected intramammary lymph nodes. Follow- up with a bilateral breast sonogram in 6 months is recommended to confirm longer-term stability. 2. No convincing new suspicious mammographic finding. 3. BI-RADS Category 3: Probably benign finding(s). Short term follow up with a bilateral breast sonog kateryna in 6 months is recommended. if your mammogram demonstrates that you have dense breast tissue, which could hide abnormalities, and if you have other risk factors for breast cancer that have been identified, you might benefit from s upplemental screening tests that may be suggested by your ordering physician. Dense breast tissue, i n and of itself, is a relatively common condition. This information is not provided to cause undue c oncern, but rather to raise your awareness and to promote discussion with your physician regarding th e presence of other risk factors, in addition to dense breast tissue. A report of your mammography re sults will be sent to you and your physician. You should contact your physician if you have any ques tions or concerns regarding this report. Mammography is a sensitive method for finding small breast cancers, but it does not detect them all a nd is not a substitute for careful clinical examination. A negative mammogram does not negate a clin ically suspicious finding and should not result in delay in biopsying a clinically suspicious abnorma lity. PQRS compliance statement - Patient information was entered into a reminder system with a target due date for the next mammogram. "Our facility is accredited by the [employer] Mammography Program." Electronically signed by: Cori Williamson MD (05/25/2021 11:52 AM) [id number]
== END ==
LOC: MAMMO 08:38
PROVIDERS: ATTEND Family Medicine
DX: R92.8 Other abnormal and inconclusive findings on diagnostic imaging of breast (principal)
CPT/HCPCS: 76641; 77066; G0279; 77062

== ENCOUNTER → 2021-08-28 | Outpatient (CLI) | payer OTHER ==
--- NOTE | 2021-08-28 13:38 | RAD ---
EXAM: Cervical spine, 5 views; lumbar spine, 5 views. HISTORY: Acute pain. COMPARISON: None. FINDINGS: Cervical spine: 5 views of the cervical spine are obtained. There is no significant listhesis. The ve rtebral bodies are normal in height and the disc spaces are preserved. Lumbar spine: 5 views of the lumbar spine are obtained. There are suspected hypoplastic T12 ribs and 4 nonrib-bearing lumbar segments. Based on this numbering system, there is 3 mm grade 1 anterolisthes is of L3 on L4. There is mild multilevel endplate remodeling. There is facet arthropathy at the lower lumbar levels. IMPRESSION: 1. Degenerative change involving the lumbar spine, primarily at the lower lumbar levels. 2. 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 Electronically signed by: Cori Williamson MD (08/28/2021 1:36 PM) [id number]
== END ==
LOC: RAD 11:57
PROVIDERS: ATTEND Physician Assistant Medical
DX: M47.816 Spondylosis without myelopathy or radiculopathy, lumbar region (principal); M54.41 Lumbago with sciatica, right side; M54.2 Cervicalgia; M54.12 Radiculopathy, cervical region
CPT/HCPCS: 72050; 72110

== ENCOUNTER → 2021-10-31 | Outpatient (CLI) | payer OTHER ==
--- NOTE | 2021-10-31 17:37 | RAD ---
EXAM: XR KNEE 3 VIEWS_RT 10/31/2021 9:57 AM CLINICAL INDICATION: Pain COMPARISON: None TECHNIQUE: 3 views of the right knee FINDINGS: There is a 4 mm subchondral defect in the patella seen on lateral view, which could be an osteochondral lesion or subchondral cyst. No fracture or malalignment. Moderate joint effusion. IMPRESSION: 4 mm osteochondral lesion versus subchondral cyst in the patella. Moderate joint effusio n. MRI could be obtained if further evaluation is indicated. Electronically signed by: Lalitha Coello MD (10/31/2021 5:35 PM) [id number]
== END ==
LOC: RAD 09:44
PROVIDERS: ATTEND Physician Assistant Medical
DX: M25.461 Effusion, right knee (principal); M25.861 Other specified joint disorders, right knee
CPT/HCPCS: 73562

== ENCOUNTER → 2021-11-15 | Outpatient (CLI) | payer OTHER ==
--- NOTE | 2021-11-15 10:07 | KCIC ---
MR CERVICAL SPINE WO History:Reason: DDD, RIGHT LOW BACK PAIN W/ SCIATICA, RADICULOPATHY, NECK / Spl. Instructions: / His tory: New rt sided neck pain in ecetn months. Pain into rt shoulder at times. Technique: Multiplanar, multi sequential noncontrast MR imaging was performed of the cervical spine. Comparison: None Findings: Normal vertebral body height and alignment. No fracture. Right C2-C3 facet edema with facet joint eff usion and perifacet edema. No pathologic signal abnormality within the cervical spinal cord. C2-C3: No canal or neuroforaminal narrowing. Right facet degenerative changes with edema. C3-C4: No canal or neuroforaminal narrowing. Mild facet arthropathy. C4-C5: No canal or neuroforaminal narrowing. C5-C6: Small disc bulge. No canal or neuroforaminal narrowing. C6-C7: No canal or neuroforaminal narrowing..Perineural root sleeve cysts. C7-T1: No canal or neuroforaminal narrowing. Perineural root sleeve cysts. Impression: 1. Right C2-C3 facet edema with effusion and perifacet edema, may represent infectious or inflammato ry fasciitis. Recommend further clinical evaluation and recommend follow-up. FOR INTERNAL CODING PURPOSES Critical result: Message was left with Dr. Decker's office at 11/15/2021 9:54 AM. RESULT CODE: (C) Electronically signed by: Pedro Vee DO (11/15/2021 10:05 AM) [id number]
--- NOTE | 2021-11-15 12:49 | KCIC ---
EXAM: Lumbar spine MRI without contrast. HISTORY: Back pain. Lumbar radiculopathy. TECHNIQUE: Multiplanar, multisequence magnetic resonance imaging of the lumbar spine was performed wi thout contrast. COMPARISON: None. FINDINGS: There is no significant listhesis. The vertebral bodies are normal in height. There is mine ccation of the intervertebral discs at the mid lower lumbar levels. There is no suspicious osseous le cici. There are few benign bone islands. There is no acute or subacute fracture. The conus terminates at L1. At L1-L2, there is no stenosis. At L2-L3, there is no stenosis. At L3-L4, there is no stenosis. At L4-L5, there is mild left greater than right facet arthropathy. There is minimal central canal yarely nosis. At L5-S1, there is a shallow posterior central disc protrusion. There is minimal central canal stenos is. IMPRESSION: Mild degenerative change involving the lower lumbar spine, described above. No acute find ing. Electronically signed by: Cori Williamson MD (11/15/2021 12:46 PM) [id number]
--- NOTE | 2021-11-15 14:05 | KCIC ---
STUDY: MRI of the right knee without contrast INDICATION: Right knee pain. Recent injury. COMPARISON: Radiographs from 10/31/2021 TECHNIQUE: Multiplanar MR imaging of the right knee performed without the use of intravenous or intra -articular contrast. FINDINGS: Menisci: Intact medial and lateral menisci. Cruciate ligaments: Intact. Collateral ligaments: Intact medial and lateral collateral ligaments. No retinacular disruption. Unre markable IT band. Tendons: No tendon tear or significant tendinosis. Cartilage: Patellofemoral: Multifocal chondrosis involving both the medial and lateral facet and median ridge. T he most pronounced chondral loss is high-grade/full-thickness at the upper margin of the median ridge . Full-thickness fissure at the mid aspect of the lateral facet. Less pronounced trochlear chondrosis which is partial thickness along the groove. Lateral compartment: Chondral fissure at the inner weightbearing aspect of the lateral tibial plateau , image 11 series 8. Medial compartment: Partial thickness chondrosis of the weightbearing medial femoral condyle and tibi al plateau. Bones: Normal TT-TG distance. Subchondral cyst formation at the patella median ridge corresponding to the radiographic abnormality. Less pronounced cystic change deep to the lateral facet fissure. Heter ogeneous marrow signal favored physiologic given patient age and gender. No acute or subacute fractur e. Miscellaneous: Small joint effusion. Mild scattered subcutaneous edema. Trace fluid within the medial gastrocnemius-semimembranosus bursa. IMPRESSION: 1. Intact menisci, cruciate ligaments and collateral ligaments. 2. High-grade/full-thickness chondral loss at the upper aspect of the patellar median ridge with sub jacent subchondral cystic change. This corresponds to the radiographic abnormality on 10/31/2021. No o steochondral fracture. Partial thickness chondrosis and some additional areas of fissuring as describ ed above. 3. Small joint effusion. Electronically signed by: ARMIDA CHERRY MD (11/15/2021 2:02 PM) [id number]
== END ==
LOC: KCIC MRI 08:06
PROVIDERS: ATTEND Family Medicine
DX: M51.37 Other intervertebral disc degeneration, lumbosacral region (principal); M47.816 Spondylosis without myelopathy or radiculopathy, lumbar region; M48.8X6 Other specified spondylopathies, lumbar region; M50.222 Other cervical disc displacement at C5-C6 level; M48.8X2 Other specified spondylopathies, cervical region; M25.861 Other specified joint disorders, right knee; M25.561 Pain in right knee; R60.0 Localized edema; M22.41 Chondromalacia patellae, right knee; M25.461 Effusion, right knee; M54.41 Lumbago with sciatica, right side; M54.12 Radiculopathy, cervical region
CPT/HCPCS: 72141; 72148; 73721

== ENCOUNTER → 2021-12-18 | Outpatient (CLI) | payer OTHER ==
[~2021-12-18] MED LIST changes: +ALBU2.5V8 IH; +BUDE10.22 IH; +FLUT1DIS IH; +IBUP-1060 PO; +PHEN37.59 PO; +RIZA10TA PO; +TIOT18CA IH; +TIZA4CAP PO; +ZOLP12.52 PO; +methylPREDNISolone ACETATE 80 MG/ML VIAL. ONE
--- NOTE | 2021-12-18 13:16 | PDOC4 ---
Procedure Note: ICD 10 Code: ICD 10 Code: M54.17 M51.87 Procedure Note: Patient was consented for lumbar epidural steroid injection with fluoroscopic guidance. Risks were discussed including but not limited to: Bleeding, infection, possibility of epidural hematoma and subsequent neurological compromise, dural puncture, headaches, spinal cord and/or nerve damage, side effects of steroid medication, and poor results regarding pain control. Patient understands and wished to proceed. Procedure is lumbar epidural steroid injection under local anesthetic using sterile prep and drape at the L5-S1 level using C-arm fluoroscopic guidance in both AP and lateral views medications injected is 120 mg Depo-Medrol +10mL preservative-free normal saline and 2 mL contrast- condition at discharge is stable patient tolerated procedure well had no complications. RAIN PACE MD Dec 18, 2021 13:16
--- NOTE | 2021-12-18 13:16 | PDOC1 ---
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 Patient reports the pain is in the low back rating the right lower extremity posterior gluteus posterior lateral thigh posterior calf posterior back of the knee as well patient reports is constant sharp in the\\throbbing shooting in the leg radiating burning and aching as well patient reports is worse with walking standing changing positions wakes her from sleep at least 2-3 times a night does not affect her bowel bladder control generally sometimes affects her walking but she not use any assistive devices. Patient has had trigger point injections in the past as well as physical therapy chiropractic treatment counseling and exercise which is currently going on as well as the chiropractic with good results but only very limited in duration patient reports taking 800 mg ibuprofen usually at night and this helps her get some sleep. Patient has tried multiple other things over the years this was worked the best for her. Patient rates her disability rating 0-10 10 being the worst is a 5 with family home responsibilities and social activity 7 with recreation and occupation 1 with self-care/support activities. Patient had MRI scans of the lumbar spine showing L4-5 mild left greater than right facet arthropathy with minimal central canal stenosis L5-S1 shows shallow posterior central disc protrusion with minimal central canal stenosis as well. Patient reports no loss of motor function with significant fatigability the right lower extremity with ambulation. PAST MEDICAL HISTORY: PMH: Arthritis, dizziness and headaches, shortness of breath PREVIOUS SURGERIES: Past Surgical Hx: Hysterectomy, sinus surgery, tonsillectomy CURRENT MEDICATIONS: Current Meds: Active Scripts Medications Dose Route/Sig Max Daily Dose Days Date Category Maxalt (Rizatriptan Benzoate) 10 Mg Tablet 10 Mg PO PRN PRN 12/18/21 Reported Phentermine Hcl 37.5 Mg Tablet 1 Tab PO DAILY 12/18/21 Reported Ibuprofen 800 Mg Tablet 800 Mg PO PRN Q6HRS PRN 12/18/21 Reported Symbicort 80-4.5 Mcg Inhaler (Budesonide/Formoterol Fumarate) 10.2 Gm Hfa.aer.ad 2 Puff IH BID 12/18/21 Reported Advair 100-50 Diskus (Fluticasone/Salmeterol) 1 Each Disk.w.dev 2 Puff IH BID 12/18/21 Reported Spiriva (Tiotropium Burton) 18 Mcg Cap.w.dev 2 Inh IH BID 12/18/21 Reported Proair Hfa Inhaler (Albuterol Sulfate) 8.5 Gm Hfa.aer.ad 2 Puff IH PRN Q4-6HRS PRN 21 12/18/21 Reported Ambien Cr (Zolpidem Tartrate) 12.5 Mg Tab.mphase 12.5 Mg PO PRN QHS PRN 12/18/21 Reported Tizanidine Hcl 4 Mg Capsule 4 Mg PO TID PRN 12/18/21 Reported ALLERGIES; Allergies: Coded Allergies: Iodinated Contrast Media (Verified Allergy, Severe, CAN'T SWALLOW, 12/13/19) shellfish derived (Verified Allergy, Severe, 12/13/19) adhesive (Verified Allergy, Intermediate, 12/13/19) codeine (Verified Allergy, Intermediate, 12/13/19) ketorolac (Verified Allergy, Intermediate, 12/13/19) latex (Verified Allergy, Intermediate, 12/13/19) gabapentin (Verified Allergy, Unknown, "tremors, shakes", 12/18/21) lisinopril (Verified Allergy, Unknown, cough, chest pain, 12/18/21) pregabalin (Verified Allergy, Unknown, "shakes, confusion", 12/18/21) topiramate (Verified Allergy, Unknown, "severe h/a", 12/18/21) tramadol (Verified Allergy, Unknown, "headache and confusion", 12/18/21) influenza virus vaccine ts [id number] (36 mos,up) (Verified Adverse Reaction, Intermediate, ARM SWELLING, HIVES, 12/13/19) FAMILY HISTORY: Family Hx: Diabetes, cerebral cavernous malfunctions, hypertension hyperlipidemia, arthritis, macular degeneration, coronary artery disease, congestive heart shalini lure, cerebral palsy, Chente-Danlos syndrome SOCIAL HISTORY: Social Hx: Patient is under alcohol does not smoke says any illegal is recreational drugs is single has 2 children living with her at home lives locally in [facility] and works as an x-ray technologist REVIEW OF SYSTEMS: ROS: Positive for those items mentioned in history of present illness, all systems are reviewed, otherwise negative ,and are complete full and well-documented on patient's chart. PHYSICAL EXAM: VS: Blood pressure is 152/93 pulse 73 respirations 18 temperature 97.5 F height is 5 foot 4 inches weight is 225 pounds PE: PHYSICAL EXAMINATION: GENERAL: The patient is awake, alert, oriented, appropriate, very pleasant in demeanor HEENT: Shows normocephalic, atraumatic. Extraocular movements are intact and symmetrical. Oral cavity: Mucous membranes moist and pink. Dentition is intact. NECK: Shows anterior throat supple without palpable lymphadenopathy noted. Swallow reflex symmetrical. CHEST: Shows normal on inspection. Breath sounds are clear bilaterally, distant but no rales or rhonchi auscultated. HEART: Shows S1, S2 clear. No murmurs auscultated. ABDOMEN: Soft, nontender, nondistended. No palpable organomegaly is noted. No rebound or guarding demonstrated. BACK: Shows spine grossly in the midline. Normal-appearing cervical lordotic curvature. There is slightly increased thoracic kyphosis, some flattening of the lumbar lordotic curvature. Lumbar paraspinous muscles show symmetrical on inspection, on palpation shows some moderate tenderness diffusely throughout the upper, middle and lower distribution of the paraspinous muscles bilaterally and also into the lower thoracic paraspinous musculature, firm and tender, but without specific trigger points, without radiation of pain. The patient has good rotational motion of the lumbar spine, both laterally as well as extension and flexion without significant difficulty. No tenderness over the spinous processes, sacrum or sacroiliac regions. EXTREMITIES: Lower extremities show deep tendon reflexes 2+ in the patellar and tendo calcaneus tendons. Motor exam is 4 on a scale of 5 with right dorsiflexion, extension, quadriceps and hamstring flexion and 4/5 on the left. Peripheral pulses are 1+ posterior tibial. No peripheral edema is noted bilaterally. Lower extremities are warm and dry to touch, equal in color and appearance. SKIN: Shows warm and dry, good turgor. No edema. No sores, rashes or bruising throughout. IMPRESSION: Impression: 51-year-old female with long history low back and right lower extremity pain in a radicular fashion MRI scan lumbar spine as noted Arthritis Dizziness Shortness of breath Plan: Options were discussed the patient including conservative managements as well as physical therapies and interventional techniques. Patient elects interventional techniques we discussed a lumbar epidural steroid injection using description as well as anatomical models to describe the procedure. Risks were discussed including but not limited to: Bleeding, infection, possibility of epidural hematoma and subsequent neurological compromise, dural puncture, headaches, spinal cord and/or nerve damage, side effects of steroid medication, and poor results regarding pain control. Patient understands and wished to proceed. Patient will return to the clinic in approximately 2 weeks for follow- up, was counseled as to return appointment, activity level, and side effect to be aware of. Procedure is lumbar epidural steroid injection under local anesthetic using sterile prep and drape at the L5-S1 level using C-arm fluoroscopic guidance in both AP and lateral views medications injected is 120 mg Depo-Medrol +10mL preservative-free normal saline and 2 mL contrast- condition at discharge is stable patient tolerated procedure well had no complications. RAIN PACE MD Dec 18, 2021 13:16
== END | disposition home or self-care (01) ==
LOC: PNCL 08:46
PROVIDERS: ATTEND Anesthesiology
DX: M51.17 Intervertebral disc disorders with radiculopathy, lumbosacral region (principal); M79.604 Pain in right leg; Z79.899 Other long term (current) drug therapy; Z98.890 Other specified postprocedural states; Z91.041 Radiographic dye allergy status; Z88.8 Allergy status to other drugs, medicaments and biological substances; Z91.040 Latex allergy status
CPT/HCPCS: 62323; J1040

== ENCOUNTER → 2022-01-01 | Outpatient (CLI) | payer OTHER ==
[~2022-01-01] MED LIST changes: +BACL10TA PO; +IOHEXOL 180 MG/ML 10 ML VIAL. ONE
--- NOTE | 2022-01-01 10:21 | PDOC4 ---
Procedure Note: ICD 10 Code: ICD 10 Code: M54.17 M51.87 Procedure Note: Patient was consented for lumbar epidural steroid injection with fluoroscopic guidance. Risks were discussed including but not limited to: Bleeding, infection, possibility of epidural hematoma and subsequent neurological compromise, dural puncture, headaches, spinal cord and/or nerve damage, side effects of steroid medication, and poor results regarding pain control. Patient understands and wished to proceed. Procedure is lumbar epidural steroid injection under local anesthetic using sterile prep and drape at the L5-S1 level using C-arm fluoroscopic guidance in both AP and lateral views medications injected is 120 mg Depo-Medrol +10mL preservative-free normal saline and 2 mL contrast- condition at discharge is stable patient tolerated procedure well had no complications. RAIN PACE MD Jan 01, 2022 10:21
--- NOTE | 2022-01-01 10:21 | PDOC ---
Progress Note - Pain Clinic Date of Service: DOS: DATE: 01/01/22 TIME: 10:17 Diagnosis: Dx: Lumbar radiculopathy with lumbar degenerative disc disease History or Present Illness: HPI: 51-year-old female returns for follow-up status post lumbar epidural steroid injection x1. Patient reports about 20% improvement better on the left than the right still some pain in the right lower extremity posterior gluteus posterior thigh posterior calf worse with walking standing changing positions been improved patient reports the pain is still present also pain in the base the neck and right shoulder right upper arm with physical therapy recently started with traction as well as ultrasound treatment patient reports is helping but only to a small amount patient reports still waking her from sleep about 3 times a night patient rates her pain is a 9 on a scale of 10 at its worst over the past week 7 on average 6 its least is a 7 today. Patient reports that the baclofen has not been helping out with the muscle relaxation or helping with the sleep. Patient still taking ibuprofen 800 mg as previously. We discussed patient's medication regimen and will change baclofen to Flexeril as she has not had this before patient was given instructions well side effects aware with the new medication. Physical Exam: VS: Blood pressure is 156/95 pulse 77 respirations 18 temperature 97.6 F weight is 222 pounds. PE: PHYSICAL EXAMINATION: GENERAL: The patient is awake, alert, oriented, appropriate, very pleasant in demeanor HEENT: Shows normocephalic, atraumatic. Extraocular movements are intact and symmetrical. Oral cavity: Mucous membranes moist and pink. Dentition is intact. NECK: Shows anterior throat supple without palpable lymphadenopathy noted. Swallow reflex symmetrical. CHEST: Shows normal on inspection. Breath sounds are clear bilaterally. HEART: Shows S1, S2 clear. No murmurs auscultated. ABDOMEN: Soft, nontender, nondistended. No palpable organomegaly is noted. BACK: Shows spine grossly in the midline. Normal-appearing cervical lordotic curvature. There is slightly increased thoracic kyphosis, some minor flattening of the lumbar lordotic curvature. Lumbar paraspinous muscles show symmetrical on inspection, on palpation shows some moderate tenderness diffusely throughout the upper, middle and lower distribution of the paraspinous muscles without specific trigger points, without radiation of pain. The patient has good rotational motion of the lumbar spine, both laterally as well as extension and flexion without significant difficulty. EXTREMITIES: Lower extremities show deep tendon reflexes 2+ in the patellar and tendo calcaneus tendons. Motor exam is 4 on a scale of 5 with right dorsiflexion, extension, quadriceps and hamstring flexion and 4/5 on the left. Peripheral pulses are 1+ posterior tibial. No peripheral edema is noted bilaterally. Lower extremities are warm and dry. SKIN: Shows warm and dry, good turgor. No edema. No sores, rashes or bruising throughout. Procedure: Procedure: Options discussed with patient. Patient's old chart was reviewed as her current medication regimen updated current review of systems updated today as well. We will proceed with a lumbar epidural steroid injection today with fluoroscopic guidance. Risks were discussed including but not limited to: Bleeding, infection, possibility of epidural hematoma and subsequent neurological compromise, dural puncture, headaches, spinal cord and/or nerve damage, side effects of steroid medication, and poor results regarding pain control. Patient understands and wished to proceed. Patient will return to clinic in approximately 2 weeks for follow-up, was counseled as to return appointment, activity level, and side effects to be aware of. Medication Injected: Med Injected: Procedure is lumbar epidural steroid injection under local anesthetic using sterile prep and drape at the L5-S1 level using C-arm fluoroscopic guidance in both AP and lateral views medications injected is 120 mg Depo-Medrol +10mL preservative-free normal saline and 2 mL contrast- condition at discharge is stable patient tolerated procedure well had no complications. Condition at Discharge: Condition at Discharge: Condition at discharge stable, patient tolerated the procedure well and had no complications. RAIN PACE MD Jan 01, 2022 10:21
== END | disposition home or self-care (01) ==
LOC: PNCL 09:10
PROVIDERS: ATTEND Anesthesiology
DX: M51.16 Intervertebral disc disorders with radiculopathy, lumbar region (principal); Z79.899 Other long term (current) drug therapy; Z91.040 Latex allergy status; Z91.041 Radiographic dye allergy status; Z88.8 Allergy status to other drugs, medicaments and biological substances
CPT/HCPCS: 62323; J1040; Q9965

== ENCOUNTER → 2022-01-24 | Outpatient (CLI) | payer OTHER ==
[~2022-01-24] MED LIST changes: +BUPIVACAINE MPF 0.25% 10 ML VIAL. ONE; +DEXAMETHASONE PRES.FREE 10 MG/ML VIAL. ONE; -IOHEXOL 180 MG/ML 10 ML VIAL. ONE; -methylPREDNISolone ACETATE 80 MG/ML VIAL. ONE
--- NOTE | 2022-01-24 10:59 | PDOC ---
Progress Note - Pain Clinic Date of Service: DOS: DATE: 01/24/22 TIME: 10:54 Diagnosis: Dx: Lumbar radiculopathy with lumbar degenerative disc disease Myofascial pain Cervical spondylosis History or Present Illness: HPI: 51-year-old female returns for follow-up status post lumbar epidural steroid injection x2. Patient reports better by about 50% but her main complaint today is neck and right shoulder pain patient reports limited mobility secondary to pain in the right shoulder and neck especially in the side of the neck in the mid upper distribution of the neck laterally and posteriorly patient reports is an 8 on scale 10 is worse over the past week 6 on average 5 its least is a 6 today patient ports aching sharp tight shooting radiating can be constant and can be severe with work duties that using her right upper extremity with repetitive motions lifting and moving items patient reports is mostly in the side of the neck in the back aspect of the neck worse with rotation of motion especially to the right as well as with extension and forward flexion. Patient reports left side is nontender most times. 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 Patient reports it wakes her from sleep at night at least every 3-4 hours. Patient reports no motor deficit significant fatigability of right shoulder and upper extremity with activities. Physical Exam: VS: Blood pressure is 142/90 pulse 79 respirations are 16 temperature is 98.0 F weight is 227 pounds. PE: PHYSICAL EXAMINATION: GENERAL: The patient is awake, alert, oriented, appropriate, very pleasant in demeanor HEENT: Shows normocephalic, atraumatic. Extraocular movements are intact and symmetrical. Oral cavity: Mucous membranes moist and pink. Dentition is intact. NECK: Shows anterior throat supple without palpable lymphadenopathy noted. Swallow reflex symmetrical. CHEST: Shows normal on inspection. Breath sounds are clear bilaterally, no rales or rhonchi. HEART: Shows S1, S2 clear. No murmurs auscultated. ABDOMEN: Soft, nontender, nondistended, obese. No palpable organomegaly is noted. BACK: Shows spine grossly in the midline. Normal-appearing cervical lordotic curvature. Cervical paraspinous muscles show symmetrical inspection on palpation some significant tenderness in the upper and middle distribution of the right sided posterior cervical paraspinous muscular as well as the right scalene musculature superiorly as well also significant tenderness with very firm ropelike musculature and trigger points in these distributions, also significant very firm ropelike musculature in the inferior cervical paraspinous posterior and superior medial trapezius on the right side with very firm ropelike muscular consistent with trigger points as well also the suprascapular distribution very firm very tender ropelike musculature very easily palpable consistent with trigger point areas of musculature but without radiation with any of the areas with palpation. Left side shows supple musculature without any specific tenderness with palpation. There is slightly increased thoracic kyphosis, some minor flattening of the lumbar lordotic curvature. Lumbar paraspinous muscles show symmetrical on inspection, on palpation shows some moderate tenderness diffusely throughout the upper, middle and lower distribution of the paraspinous muscles, but without specific trigger points, without radiation of pain. The patient has good rotational motion of the lumbar spine, both laterally as well as extension and flexion without significant difficulty. No tenderness over the spinous processes, sacrum or sacroiliac regions. EXTREMITIES: Lower extremities show deep tendon reflexes 2+ in the patellar and tendo calcaneus tendons. Motor exam is 2+ on a scale of 4 with right dorsiflexion, extension, quadriceps and hamstring flexion and 4/5 on the left. Peripheral pulses are 1+ posterior tibial. No peripheral edema is noted bilaterally. Lower extremities are warm and dry to touch, equal in color and appearance. Upper extremity show deep tendon reflexes 2+ in the bicep tricep tendons, motor exam is 5 out of 5 oil field pumper during bicep and tricep flexion bilaterally. SKIN: Shows warm and dry, good turgor. No edema. No sores, rashes or bruising throughout. Procedure: Procedure: Options were discussed with the patient. Patient's old chart was reviewed as her current medication regimen updated current review of systems updated today as well. We will proceed with trigger point injections of the right cervical paraspinous posterior, right trapezius musculature, right suprascapular musculature. Risk were discussed including but not limited to bleeding infection possibility of intravascular injection sequelae spread local anesthetic numbness side effects of steroid medication portals regarding pain control. Patient understands and wished to proceed. Patient will return to clinic in approximately 2 weeks for follow-up, was counseled as to return appoi ntment, activity level, and side effect to be aware of. Medication Injected: Med Injected: Under sterile prep and drape patient in the prone position trigger point areas were identified and using a 25-gauge needle after negative aspiration each injection site, a total of 5 cc 0.25% bupivacaine and total of 10 mg dexamethasone was injected. Patient tolerated the procedure well and had no complications. Condition at Discharge: Condition at Discharge: Condition at discharge is stable, patient tolerated the procedure well and had no complications. RAIN PACE MD Jan 24, 2022 10:59
--- NOTE | 2022-01-24 11:01 | PDOC4 ---
Procedure Note: ICD 10 Code: ICD 10 Code: M60.89 Procedure Note: Patient was consented for trigger point injections. Risk were discussed including but not limited to bleeding infection possibility of intravascular injection sequelae, spread of local anesthetic and numbness, side effects steroid medication, poor results regarding pain control. Patient understands wishes to proceed. Under sterile prep and drape patient in the prone position trigger point areas were identified and using a 25-gauge needle after negative aspiration each injection site, a total of 5 cc 0.25% bupivacaine and total of 10 mg dexamethasone was injected. Patient tolerated the procedure well and had no complications. RAIN PACE MD Jan 24, 2022 11:01
== END | disposition home or self-care (01) ==
LOC: PNCL 09:14
PROVIDERS: ATTEND Anesthesiology
DX: M60.89 Other myositis, multiple sites (principal); Z79.899 Other long term (current) drug therapy; Z98.890 Other specified postprocedural states; Z91.041 Radiographic dye allergy status; Z91.013 Allergy to seafood; Z88.3 Allergy status to other anti-infective agents; Z91.040 Latex allergy status; Z88.8 Allergy status to other drugs, medicaments and biological substances
CPT/HCPCS: 20553; J1100; J3490